=== PATIENT | female | born 1970 | race Caucasian/White ===

== ENCOUNTER → 2020-01-05 07:42 | Outpatient (BNVA) | payer OTHER, SELFPAY | PROVIDERS: PCP Internal Medicine; Referring Provider Internal Medicine; Visit Provider Surgery | DX: Z76.89 Persons encountering health services in other specified circumstances (principal) ==

== ENCOUNTER → 2020-01-26 08:11 | Outpatient (BNVA) | payer OTHER, SELFPAY | PROVIDERS: PCP Internal Medicine; Visit Provider Surgery | DX: Z76.89 Persons encountering health services in other specified circumstances (principal) ==

== ENCOUNTER → 2020-03-05 07:56 | Outpatient (BNVA) | payer OTHER, SELFPAY | PROVIDERS: PCP Internal Medicine; Referring Provider Internal Medicine; Visit Provider Surgery | DX: Z76.89 Persons encountering health services in other specified circumstances (principal) ==

== ENCOUNTER → 2020-05-03 08:12 | Outpatient (BNVA) | payer OTHER, SELFPAY | PROVIDERS: PCP Internal Medicine; Visit Provider Surgery ==

== ENCOUNTER → 2020-06-14 08:12 | Outpatient (BNVA) | payer OTHER, SELFPAY | PROVIDERS: PCP Internal Medicine; Visit Provider Surgery ==

== ENCOUNTER → 2020-07-06 08:07 | Outpatient (BNVA) | payer OTHER, SELFPAY | PROVIDERS: PCP Internal Medicine; Visit Provider Dietitian, Registered | DX: E66.3 Overweight (principal) | CPT/HCPCS: 97803 ==

== ENCOUNTER 2020-07-23 08:10 | Outpatient (REF) | payer OTHER, SELFPAY ==
[2020-07-23 09:12] LABS: MANUAL DIFF FLAG NO
[2020-07-23 09:19] LABS: Basophils Percent Auto 0.5 % (0-2); Eosinophils Absolute Auto 0.1 X10*3/uL (0.0-0.4); Eosinophils Percent Auto 1.2 % (0-4); Hematocrit 41.4 % (37-47); Hemoglobin 13.4 g/dl (12.0-16.0); Imm Gran Abs Auto 0.01 X10*3/uL (0.00-0.03); Imm Gran Pct Auto 0.2 % (0.0-0.4); Lymphocytes Absolute Auto 1.5 X10*3/uL (1.2-4.9); Lymphocytes Percent Auto 26.3 % (20-40); Mean Corpuscular HGB Conc 32.4 g/dl (31.0-35.0); Mean Corpuscular Hemoglobin 29.7 pg (27.0-33.0); Mean Corpuscular Volume 91.8 fL (80-98); Mean Platelet Volume 9.4 fL (9.4-12.3); Monocytes Absolute Auto 0.4 X10*3/uL (0.1-1.2); Monocytes Percent Auto 7.5 % (2-11); Neutrophils Absolute Auto 3.7 X10*3/uL (2.0-8.3); Neutrophils Percent Auto 64.3 % (45-73); Platelet Count 230 X10*3/uL (160-400); Red Blood Count 4.51 X10*6/uL (4.20-5.50); Red Cell Distribution Width 12.7 % (11.0-16.0); White Blood Count 5.8 X10*3/uL (4.8-10.8)
[2020-07-23 09:37] LABS: Alanine Aminotransferase 16 U/L (0-31); Albumin Level 4.4 g/dL (3.5-5.0); Alkaline Phosphatase 66 U/L (39-117); Anion Gap 11 (12-20); Aspartate Amino Transferase 15 U/L (5-31); Bilirubin Total 0.8 mg/dL (0.0-1.0); Blood Urea Nitrogen 22 mg/dL (9-16); C Reactive Protein 0.19 mg/dL (< or = 0.50); Calcium 9.6 mg/dL (8.4-10.2); Carbon Dioxide 30 mmol/L (22-29); Chloride 105 mmol/L (96-108); Cholesterol 198 mg/dL; Estimated Glomerular Filt Rate > 60; Glucose Random 80 mg/dL (60-115); HDL Cholesterol 60 mg/dL; LDL Cholesterol Calculated 128 mg/dl; Potassium 4.5 mmol/L (3.3-5.1); Sodium 141 mmol/L (135-145); Total Protein 6.8 g/dL (6.5-8.0); Triglycerides 54 mg/dL
[2020-07-23 10:01] LABS: Ferritin 126 ng/mL (10-250); TSH reflex Free T4 0.92 uIU/mL (0.32-4.0); Vitamin D 25-OH Total 38.9 ng/mL (>30)
[2020-07-23 10:51] LABS: Estimated Average Glucose 82 mg/dL; Hemoglobin A1c % 4.5 %
[2020-07-23 11:35] LABS: Vitamin B12 1034 pg/mL (200-900)
[2020-07-24 09:52] LABS: Insulin Level Total 4.9 uIU/mL
[2020-07-27 00:32] LABS: Zinc 86 mcg/dL (60-130)
[2020-07-27 11:37] LABS: Calcium (PTHI) 9.3 mg/dL (8.6-10.2); PTHI 45 pg/mL (14-64)
[2020-07-27 22:02] LABS: Vitamin A 52 mcg/dL (38-98)
[2020-07-29 06:37] LABS: Vitamin B1 38 nmol/L (8-30)
== END 2020-07-23 08:11 | disposition home or self-care (01) ==
LOC: HO.LAB 08:10
PROVIDERS: PCP Internal Medicine; Visit Provider Surgery
DX: E66.3 Overweight (principal); K90.9 Intestinal malabsorption, unspecified
CPT/HCPCS: 36415; 80053; 80061; 82306; 82607; 82728; 82746; 83036; 83525; 83970; 84425; 84443; 84590; 84630; 85025; 86140

== ENCOUNTER → 2020-07-29 08:18 | Outpatient (BNVA) | payer OTHER, SELFPAY | PROVIDERS: PCP Internal Medicine; Visit Provider Dietitian, Registered | DX: E66.3 Overweight (principal); Z68.25 Body mass index [BMI] 25.0-25.9, adult | CPT/HCPCS: 97803 ==

== ENCOUNTER → 2020-12-07 09:25 | Outpatient (BNVA) | payer OTHER, SELFPAY | PROVIDERS: PCP Internal Medicine; Referring Provider Internal Medicine; Visit Provider Physician Assistant Surgical ==

== ENCOUNTER 2023-08-13 10:49 | Outpatient (AMB) | payer BC, SELFPAY ==
--- NOTE | 2023-08-13 10:51 | A.OFFVIS_ITS ---
VS Expanded 08/13/23 11:01 BP 120/71 Blood Pressure Location Rt brachial Blood Pressure Position Sitting Pulse 68 Pulse Source Pulse Oximeter Temp 97.6 F Temperature Source Temporal Artery Scan Pulse Oximetry 100 Oxygen Delivery Method Room Air Height 5 ft 8 in Weight 188 lb BMI 28.6 Body Fat % 35.8 Body Fat Mass 67.2 Fat Free Mass 120.6 Visceral Fat Rating 8.0 Body Water % 45.7 Body Water Mass 85.8 Muscle Mass/Score 114.4 Basal Metabolic Rate/Score 1,635 Intake Visit Reasons: OV PO LSG 12/02/19 [facility] [employer] [facility] Required: No Allergies adhesive tape Allergy (Severe, Verified 08/13/23 10:56) blisters Medication List - Last Reconciled 08/13/23 by EVANGELISTA Estrada bupropion HCl XL (Wellbutrin XL) 300 mg PO QAM zuhnxfwzzuyh-Jj-iosh-minerals (Maximum Daily Multivitamin) tabs PO HPI Comments Details: Patient is a 53-year-old female who returns to the office today in follow-up. She is approximately 3 years 8 months post sleeve gastrectomy performed on 12/02/2019. She was last seen in the office on 12/07/2020. Weight at that time was 162.4 lb with a BMI of 24.7. Weight today is 188 lb with a BMI of 28.6. Preop weight was 218 lb. She has had some difficulties at home in the last year or so with her [id number] having mental health instability. Her son and [id number] and 3 children live with her and it has been very difficult to maintain a healthy weight as she has had to care for her grandchildren as her [id number] required inpatient hospitalization over the last 6 weeks Previously using pure protein bars and shakes. meal plan: nothing formal exercise plan: previously walking 4 mi daily outside. previously PF in [place]. PFSH Medical History Intestinal malabsorption Overweight Surgical History Hx of breast surgery History of sleeve gastrectomy History of repair of hiatal hernia History of esophagogastroduodenoscopy (EGD) History of colonoscopy Hx of laparoscopy Hx of hysterectomy with oophorectomy Hx of bilateral mastectomy Family History Father HTN (hypertension) Mother EROS (obstructive sleep apnea) Endometriosis Brother GERD (gastroesophageal reflux disease) Depression Daughter No problems noted. Daughter No problems noted. Social History Alcohol intake: current Alcohol intake frequency: a few times a week Patient Tobacco Use Status: Never used Tobacco Physical Exam Vital Signs: Last Vital Signs Temp 97.6 F 08/13/23 11:01 Pulse 68 08/13/23 11:01 BP 120/71 08/13/23 11:01 Pulse Ox 100 08/13/23 11:01 Oxygen Delivery Method Room Air 08/13/23 11:01 BMI result Body Mass Index 28.6 Const General: cooperative and no acute distress Orientation/consciousness: patient oriented x3 Resp Effort & Inspection: normal respiratory effort Auscultation: clear to auscultation bilaterally Cardio Rate: regular rate Rhythm: regular rhythm GI Inspection: Yes normal to inspection and Yes incision (well healed) Palpation (GI): Soft to palpation and no masses Neuro General: patient oriented x3 Assessment & Plan Assessment & Plan (1) S/P laparoscopic sleeve gastrectomy: Code(s): Z98.84 - Bariatric surgery status Category: Surgical Plan: Check yearly labs. Start meal plan with: Pure protein bar Pure protein shake, 1 scoop in 12 oz of unsweetened almond milk Meal 7 forks of protein 7 forks of vegetables Half to 3/4 cup fresh fruit (berries, apple, pear, orange) Start exercise at [employer] bike, elliptical, rowing machine or treadmill for 300 calories daily She may walk outside tracking calories with the [employer] at. Return to clinic 6 weeks. Goal is 21 lb weight loss by December Orders: Orders Insulin Today E66.3 - Overweight, Z98.84 - Bariatric surgery status Lipid Panel Today E66.3 - Overweight, Z98.84 - Bariatric surgery status Zinc Today E66.3 - Overweight, Z98.84 - Bariatric surgery status C Reactive Protein Today E66.3 - Overweight, Z98.84 - Bariatric surgery status TSH reflex Free T4 Today E66.3 - Overweight, Z98.84 - Bariatric surgery status Hemoglobin A1c Today E66.3 - Overweight, Z98.84 - Bariatric surgery status Complete Blood Count Auto Diff Today E66.3 - Overweight, Z98.84 - Bariatric surgery status IRON PROFILE Today E66.3 - Overweight, Z98.84 - Bariatric surgery status Vitamin B12 and Folate Today E66.3 - Overweight, Z98.84 - Bariatric surgery status Vitamin B1 Today E66.3 - Overweight, Z98.84 - Bariatric surgery status Vitamin A Today E66.3 - Overweight, Z98.84 - Bariatric surgery status Ferritin Today E66.3 - Overweight, Z98.84 - Bariatric surgery status Vitamin D 25-OH Total Today E66.3 - Overweight, Z98.84 - Bariatric surgery status Basic Metabolic Panel Today E66.3 - Overweight, Z98.84 - Bariatric surgery status
[2023-08-13 11:01] VITALS: BP 120/71; PULSE 68; TEMP 36.4; O2SAT 100; BMI 28.6
== END 2023-08-13 11:41 | disposition home or self-care (01) ==
PROVIDERS: PCP Internal Medicine; Visit Provider Physician Assistant Surgical
DX: E66.3 Overweight (principal); Z68.28 Body mass index [BMI] 28.0-28.9, adult; Z90.3 Acquired absence of stomach [part of]; Z98.84 Bariatric surgery status
CPT/HCPCS: 99214

== ENCOUNTER → 2023-08-13 10:49 | Outpatient (BNVA) | payer SELFPAY | PROVIDERS: PCP Internal Medicine; Visit Provider Physician Assistant Surgical ==